=== PATIENT | female | born 1995 | race Caucasian/White ===

== ENCOUNTER 2017-10-25 07:44 | Outpatient (RCR) | payer SELFPAY | END 2017-11-01 23:59 | LOC: DC 07:44 | PROVIDERS: Family Provider Physician Assistant; PCP Physician Assistant; Visit Provider Obstetrics & Gynecology | DX: O24.410 Gestational diabetes mellitus in pregnancy, diet controlled (principal); Z71.3 Dietary counseling and surveillance | CPT/HCPCS: 97802 ==

== ENCOUNTER 2017-11-12 12:20 | Outpatient (CLI) | payer SELFPAY ==
[2017-11-12 12:46] VITALS: BMI 27.8
[2017-11-12 13:38] LABS: Mucous, Urine 0 SEEN /hpf (<or=2+); Red Blood Cells-Urine 0 SEEN /hpf (0-5)
[2017-11-12 13:44] LABS: Color, Urine Yellow (Yellow); Glucose, Dipstick Normal (Normal); Ketone-Dipstick Negative (Negative); Leukocyte Esterase-Dipstick 500 /ul (Negative); Nitrite-Dipstick Negative (Negative); Occult Blood-Urine Negative /ul (Negative); Protein-Dipstick Negative (Negative); Urine Bilirubin Dipstick Negative (Negative); Urine Clarity Clear (Clear); Urine Urobilinogen Normal (Normal)
[2017-11-12 13:50] LABS: Bacteria 1+ /hpf (None Seen); Squamous Epithelial Cells - UA 0-5 SEEN /hpf (5-10); White Blood Cells 5-10 SEEN /hpf (0-5)
[2017-11-12 14:26] LABS: Bedside Glucose 114 mg/dL (70-110)
--- NOTE | 2017-11-12 14:38 | OB.TRI.NOTE ---
History of Present Illness Date of Service: 11/12/17 Was patient seen by the physician?: Yes Reason For Visit: L SIDE ABD PAIN Date of Service: 11/12/17 Final ODALIS: 01/02/18 Final ODALIS Source: US <20 weeks Gestational age: 32 Weeks and 5 Days History of Present Illness: 22yo @ 32 5/7wga with LUQP since 11/08/17, h/o GDMA1. Pain is intermittent with waxing and waning intensity and non-radiating, but patient notes numbness on her left side when it is 10/10. She was seen in the office earlier this week and was given exercises to aid with sciatic pain, but the exercise have not helped. She has taken Tylenol otc q4h with no improvement of pain. Denies fever, chills, dysuria, hematuria, frequency, cough, shortness of breath, rhinorrhea, sore throat. No recent URI, no prior h/o mononucleosis or exposure to someone with mononucleosis. + fatigue, but she attributes this to while caring for 15month old daughter. She has no prior h/o nephrolithiasis or UTI. RN today indicated patient had a syncopal episode with periodic tachycardia during triage assessment. On inquiry pt relates syncope once in August, no other times. She felt lightheaded prior to episode and denies other associated symptoms. No family h/o arrhythmia. +FM, no leaking of fluid or contractions. +spotting x 1 earlier today. Denies constipation or intercourse. Home Medications Medication Instructions Recorded Tablet 1 tab PO DAILY 11/12/17 Allergies No Known Allergies Allergy (Verified 11/12/17 12:51) Physical Exam Vitals: AVSS General: Alert, Oriented x3, Cooperative, No apparent distress Cardiovascular: Regular Rhythm Lungs: Normal air movement Abdomen: Soft, Non Tender, Non-Distended, Gravid, - - + L. CVA tenderness Extremities:: No edema Estimated gestational size: Appropriate for gestational size Presentation: Unable to assess NST - FHR Rate Baby A Baseline: 140 Variability:: Moderate Accelerations:: 15 x 15 Decelerations:: None NST Reactive:: Yes FHR Category:: Category I Uterine Activity:: 0 Impression/Plan 22yo @ 32 5/7wga with likely UTI, possible nephrolithiasis and syncopal episode. -FS 114 -U/A c/w UTI. Rx Keflex. Recommend adequate hydration 10-12 glasses of water a day. May use cranberry supplement. Recommend avoiding Tylenol given no improvement of symptoms. -Advised she consider outpatient Holter monitor in light of tachycardia associated syncope - as no pain stimulus present at that time. Patient inquired as to whether this was medically necessary due to cost. I advised that by chance, she mostly has sinus tachycardia related to . She has the option to monitor and defer Holter at this time. However, I cannot guarantee that she does not have a less common but potential life altering or life threatening arrhythmia such as atrial fibrillation. She reports understanding. I encouraged her to discuss further with Dr. Sarabia at her next visit. Code Visit Office Visits / Consults: [id number] OV L2 New
--- NOTE | 2017-11-12 14:53 | PCM.DC ---
- Discharge Diagnoses Reason(s) for Visit for Discharge Instructions: Urinary tract infection, abdominal pain You will use the following diet at home:: No restrictions Your food should be the consistency of: Regular Discharge Activity: Return to Normal Activity Call your doctor if you observe: Fever of 101 or Higher, Inability to urinate, Fainting spells Instructions: Urinary Tract Infections in Women Additional Instructions: You may use an Azo cranberry supplement - over the counter for relief Allergies/Adverse Reactions: Allergies No Known Allergies Allergy (Verified 11/12/17 12:51) Medications to take at Discharge Cephalexin [Keflex] 500 mg PO TID #21 cap 11/12/17 Tablet 1 tab PO DAILY 11/12/17 The following prescriptions were given: Cephalexin [Keflex] 500 mg PO TID #21 cap Primary Care Physician: Lisa Rios PA [Primary Care Provider] - Please Follow Up With: David Sarabia MD When: 1-2 weeks as scheduled
== END 2017-11-12 15:12 | disposition home or self-care (01) ==
LOC: WP 12:30 → WPOUT 12:48 → WP 12:48
PROVIDERS: Family Provider Physician Assistant; PCP Physician Assistant; Visit Provider Obstetrics & Gynecology
DX: O23.43 Unspecified infection of urinary tract in pregnancy, third trimester (principal); O99.89 Other specified diseases and conditions complicating pregnancy, childbirth and the puerperium; R00.0 Tachycardia, unspecified; R55 Syncope and collapse; O24.410 Gestational diabetes mellitus in pregnancy, diet controlled; Z3A.32 32 weeks gestation of pregnancy
CPT/HCPCS: 59025; 59050; 81001; 82962; 99218; G0378

== ENCOUNTER → 2017-12-05 15:00 | Outpatient (CLI) | payer SELFPAY ==
[2017-12-06 11:58] LABS: Group B Strep DNA By PCR Negative (Negative); Internal Control PASS; Probe Check PASS; Specimen Processing Control PASS
== END ==
PROVIDERS: Visit Provider Obstetrics & Gynecology
DX: Z36.85 Encounter for antenatal screening for Streptococcus B (principal)
CPT/HCPCS: 87081; 87653

== ENCOUNTER 2018-01-01 07:00 | Inpatient (IN) | payer SELFPAY ==
[2018-01-01 07:28] VITALS: BMI 30.1
[2018-01-01] MEDS: Lactated Ringers 1,000 ML 50 ML IV (07:40)
[2018-01-01 08:02] LABS: Hematocrit 31.8 % (37-47); Hemoglobin 10.1 g/dl (12.0-15.0); Mean Corp Hgb Conc 31.8 g/gl (32-36); Mean Platelet Vol. 10.6 fl (6.2-12.0); Platelet Count 191 K/mm3 (150-450); RBC Distribution Width CV 17.1 % (11.6-14.6); RBC Distribution Width SD 50.3 fl (35.1-43.9); Red Blood Count 3.88 M/mm3 (4.2-5.4); White Blood Count 8.1 K/mm3 (4.4-11.0)
[2018-01-01 08:05] LABS: Scan Indicated on CBC? Y/N NO
[2018-01-01] MEDS: Oxytocin 30 units/NS 500 ml 30 UNITS/500 ML IV.SOLN IV (08:20)
[2018-01-01 09:11] LABS: Bedside Glucose 96 mg/dL (70-110)
[2018-01-01 09:51] LABS: Bedside Glucose 92 mg/dL (70-110)
[2018-01-01] MEDS: fentaNYL-bupivacaine (epidural) 100 ML BAG EPIDURAL (13:05)
[2018-01-01 13:40] LABS: Bedside Glucose 74 mg/dL (70-110)
[2018-01-01 14:35] LABS: Bedside Glucose 71 mg/dL (70-110)
[2018-01-01] MEDS: Oxytocin 30 units/NS 500 ml 30 UNITS/500 ML IV.SOLN 334 UNITS IV (15:19)
--- NOTE | 2018-01-01 15:28 | PCM.OB.VAG ---
Vaginal Delivery Maternal Presentation: Elective Induction Method of Induction: Pitocin, Amniotomy Amniotic Membrane Rupture Type: Artificial Amniotic Fluid Description: Clear Final ODALIS: 01/02/18 Gestational age: 39 Weeks and 6 Days Date of Procedure: 01/01/18 Pre-Operative Diagnosis: IUP Post-Operative Diagnosis: IUP Surgery/ Procedure Performed: Spontaneous Vaginal Delivery Type of Anesthesia: Epidural Description of Procedure: Spontaneous vaginal delivery of a viable male with Apgars of 8/9 with a normal three-vessel placenta and cord around the neck ?1 loose. First-degree midline laceration, no episiotomy. Laceration repaired with 3-0 Vicryl suture under epidural. Partial cleft lip noted on the left. Sponge counts okay. Delivery physician: David Sarabia MD. Presentation: Vertex Placental Delivery Description: Spontaneous Placenta Disposition: [facility] Cord Vessel Description: 3 Vessels Cord Entanglement: Around neck x 1, loose Estimated Blood Loss: 250 cc Infant A gender: Male (1 minute): 8 (5 minute): 9 Episiotomy Description: None Laceration: Midline, Perineal Extension/lac, 1st degree Medications given after delivery: IV Pitocin Complications: None
--- NOTE | 2018-01-01 15:35 | PCM.DCVAG ---
Discharge Diet: No Restrictions Discharge Activity: May Shower, May Take a Tub Bath May resume sexual activity in: 4-6 weeks Additional Activity Instructions:: Nothing in the vagina for 4-6 weeks. You may return to work/school in 6 weeks. Call your doctor if you observe: Fever of 101 or Higher, Inability to urinate, Inability to have a bowel movement, Using more than one pad per hour Additional Instructions: If you experience any of the following, contact your healthcare provider. Bleeding that soaks a pad every hour for 2 hours Unrelieved incision or abdominal pain Swelling, redness, discharge or bleeding from your incision or episiotomy site Your incision begins to separate Problems urinating (including inability to urinate or burning while urinating). Visual changes Severe headache Flu-like symptoms Pain or redness in one of both of your breasts Pain, warmth, tenderness or swelling in your legs, especially the calf area Frequent nausea and vomiting Symptoms of depression or anxiety If you experience any of the following, call 911 or go to the nearest Emergency Room. Chest pain Problems breathing Seizure activity Partial or complete paralysis of a body part, slurred speech, weakness or drooping of the face, or a sudden inability to walk or hold your balance Allergies/Adverse Reactions: Allergies No Known Allergies Allergy (Verified 01/01/18 07:29) Medications to take at Discharge Tablet 1 tab PO DAILY 11/12/17 Please Follow Up With: David Sarabia MD - [phone] When: Call to make an appointment with your doctor in 6 weeks. Primary Care Physician: Lisa Rios PA [Primary Care Provider] -
--- NOTE | 2018-01-01 15:36 | DCINST_ITS ---
Discharge Diet: No Restrictions Discharge Activity: May Shower, May Take a Tub Bath May resume sexual activity in: 4-6 weeks Additional Activity Instructions:: Nothing in the vagina for 4-6 weeks. You may return to work/school in 6 weeks. Call your doctor if you observe: Fever of 101 or Higher, Inability to urinate, Inability to have a bowel movement, Using more than one pad per hour Additional Instructions: If you experience any of the following, contact your healthcare provider. * Bleeding that soaks a pad every hour for 2 hours * Unrelieved incision or abdominal pain * Swelling, redness, discharge or bleeding from your incision or episiotomy site * Your incision begins to separate * Problems urinating (including inability to urinate or burning while urinating) . * Visual changes * Severe headache * Flu-like symptoms * Pain or redness in one of both of your breasts * Pain, warmth, tenderness or swelling in your legs, especially the calf area * Frequent nausea and vomiting * Symptoms of depression or anxiety If you experience any of the following, call 911 or go to the nearest Emergency Room. * Chest pain * Problems breathing * Seizure activity * Partial or complete paralysis of a body part, slurred speech, weakness or drooping of the face, or a sudden inability to walk or hold your balance Allergies/Adverse Reactions: Allergies No Known Allergies Allergy (Verified 01/01/18 07:29) Medications to take at Discharge Tablet 1 tab PO DAILY 11/12/17 Please Follow Up With: David Sarabia MD - [phone] When: Call to make an appointment with your doctor in 6 weeks. Primary Care Physician: Lisa Rios PA [Primary Care Provider] -
[2018-01-01] MEDS: Acetaminophen 325 MG Tablet PO (15:43)
[2018-01-01] MEDS: Oxytocin 30 units/NS 500 ml 30 UNITS/500 ML IV.SOLN 167 UNITS IV (15:49)
[2018-01-01 16:05] LABS: Bedside Glucose 79 mg/dL (70-110)
[2018-01-01 20:00] VITALS: BP 121/67; PULSE 93; RESP 18; TEMP 37
[2018-01-01] MEDS: Ibuprofen 600 MG Tablet PO (21:40)
[2018-01-02 00:30] VITALS: BP 106/65; PULSE 88; RESP 16; TEMP 36.8
[2018-01-02 05:15] VITALS: BP 103/57; PULSE 92; RESP 16; TEMP 37.1
--- NOTE | 2018-01-02 07:08 | PCM.PN.OB ---
Subjective: day #1 Patient without complaints. Breast-feeding going well. Wants to go home today. - Physical Exam Vital Signs AF, VSS Temp Pulse Resp BP 98.8 F 92 16 103/57 L 01/02/18 05:15 01/02/18 05:15 01/02/18 05:15 01/02/18 05:15 Oxygen Delivery Method Room Air Weight: 159 lb 6.4 oz Body Mass Index (BMI) 30.1 Intake and Output for Last 24 Hours 12/31/17 01/01/18 01/02/18 23:59 23:59 23:59 Intake Total 2655 / 2655 Output Total 1300 / 1300 Balance 1355 / 1355 Laboratory Tests Past 24 Hrs 01/01/18 01/01/18 07:40 07:40 WBC 8.1 RBC 3.88 L Hgb 10.1 L Hct 31.8 L MCV 82.0 MCH 26.0 L MCHC 31.8 L RDW 17.1 H RDW Differential 50.3 H Plt Count 191 MPV 10.6 Blood Type A POSITIVE Antibody Screen NEGATIVE POC Glucose 01/01/18 01/01/18 01/01/18 15:54 14:29 13:35 POC Glucose 79 71 74 01/01/18 01/01/18 09:30 08:28 POC Glucose 92 96 Medical Necessity - Tobacco Use Smoking Status: Never smoker Assessment/Plan day #1 Doing well. Will release to home with routine instructions if baby is able to go home later today.
[2018-01-02 10:00] VITALS: BP 130/60; PULSE 110; RESP 16
[2018-01-02 11:00] VITALS: TEMP 37.1
[2018-01-02 16:13] VITALS: BP 121/71; PULSE 102; RESP 16; TEMP 37; O2SAT 97
[2018-01-02 20:00] VITALS: BP 125/80; PULSE 110; RESP 16; TEMP 37; O2SAT 98
[2018-01-03 02:00] VITALS: BP 112/69; PULSE 99; RESP 18; TEMP 36.8; O2SAT 97
--- NOTE | 2018-01-03 08:22 | PCM.PN.OB ---
Subjective: Patient without complaints. Breast-feeding going well. Ready to go home. - Physical Exam Vital Signs Temp Pulse Resp BP Pulse Ox 98.3 F 99 18 112/69 97 01/03/18 02:00 01/03/18 02:00 01/03/18 02:00 01/03/18 02:00 01/03/18 02:00 Oxygen Delivery Method Room Air Weight: 159 lb 6.4 oz Body Mass Index (BMI) 30.1 Intake and Output for Last 24 Hours 01/01/18 01/02/18 01/03/18 23:59 23:59 23:59 Intake Total 2655 / 2655 Output Total 1300 / 1300 Balance 1355 / 1355 Medical Necessity - Tobacco Use Smoking Status: Never smoker Assessment/Plan Doing well. day #2. Released to home with routine instructions.
[2018-01-03 09:16] VITALS: BP 124/72; PULSE 110; RESP 18; TEMP 36.9; O2SAT 98
== END 2018-01-03 10:15 | disposition home or self-care (01) | DRG 775 ==
PROVIDERS: Admitting Provider Obstetrics & Gynecology; Family Provider Physician Assistant; PCP Physician Assistant; Visit Provider Obstetrics & Gynecology
DX: O69.81X0 Labor and delivery complicated by cord around neck, without compression, not applicable or unspecified (principal); Z37.0 Single live birth; O70.0 First degree perineal laceration during delivery; Z3A.39 39 weeks gestation of pregnancy
CPT/HCPCS: 59025; 59050; 82962; 85027; 86850; 86900; 99218; J7120; G0378